=== PATIENT | female | born 1970 | race Caucasian/White ===

== ENCOUNTER 2019-09-04 15:42 | Emergency (ER) | payer OTHER ==
[~2019-09-04] VITALS: Ht 172.7 cm; Wt 127.0 kg
[~2019-09-04 15:42] MED LIST: CARVEDILOL25 MG; DICLOFENAC POTA50 MG PO; HYZAAR 100-12.1 EACH; JANUMET 50-5001 EACH; LANTUS SOL100 UNIT/1; NORFLEX100MG PO
[2019-09-04] MEDS ORDERED: GLYXAMBI 25 MG1 EACH (16:00)
[2019-09-04] MEDS ORDERED: CANDESARTAN CIL16 MG (16:00)
== END 2019-09-04 21:11 | disposition home or self-care (01) ==
LOC: ER 15:42
DX: R42 Dizziness and giddiness (principal)

== ENCOUNTER 2019-11-05 12:55 | Outpatient (CLI) | payer OTHER ==
[~2019-11-05 12:55] MED LIST changes: +CANDESARTAN CIL16 MG; +GLYXAMBI 25 MG1 EACH
== END 2019-11-05 13:03 | disposition home or self-care (01) ==
LOC: MAMO-SONO 12:55
DX: Z12.31 Encounter for screening mammogram for malignant neoplasm of breast (principal)

== ENCOUNTER 2020-02-14 11:58 | Outpatient (CLI) | payer OTHER | END 2020-02-14 12:19 | disposition home or self-care (01) | LOC: SONOGRAMA 11:58 | DX: N60.09 Solitary cyst of unspecified breast (principal); N63.10 Unspecified lump in the right breast, unspecified quadrant; N63.20 Unspecified lump in the left breast, unspecified quadrant ==

== ENCOUNTER 2020-05-17 07:34 | Outpatient (CLI) | payer OTHER | END 2020-05-17 07:45 | disposition home or self-care (01) | LOC: MRI 07:34 | DX: D44.3 Neoplasm of uncertain behavior of pituitary gland (principal); E22.1 Hyperprolactinemia | CPT/HCPCS: 70552 ==

== ENCOUNTER 2020-08-10 06:51 | Outpatient (CLI) | payer OTHER | END 2020-08-10 07:17 | disposition home or self-care (01) | LOC: LAB 06:51 | DX: I10 Essential (primary) hypertension (principal); R42 Dizziness and giddiness; Z20.828 Contact with and (suspected) exposure to other viral communicable diseases; Z11.59 Encounter for screening for other viral diseases; E78.2 Mixed hyperlipidemia; E11.65 Type 2 diabetes mellitus with hyperglycemia ==

== ENCOUNTER 2024-07-03 09:24 | Emergency (ER) | payer OTHER ==
[~2024-07-03] VITALS: Ht 172.7 cm; Wt 127.0 kg
[2024-07-03] MEDS ORDERED: LOSARTAN-HCTZ1 EACH (09:55)
[2024-07-03] MEDS ORDERED: TENORMIN50 M1 (09:55)
[2024-07-03] MEDS ORDERED: GLUMETZA1000 MG (09:55)
[2024-07-03] MEDS ORDERED: 0.9 % SODIUM CHLORIDE 1,000 ML IV ONE (10:30)
[2024-07-03] MEDS ORDERED: INSULIN REGULAR, HUMAN 1,000 UNIT/10 ML UNITS SUBCUTANEO ONE ×2 (10:30→11:45)
[2024-07-03 10:49] LABS: HEMOGLOBIN 12.6 g/dL (12.0-15.00); MEAN CELL VOLUME 75.8 fL (80.00-100.00); MEAN CORPUSCULAR HEMOGLOBIN 25.1 pg (27.00-32.0); MEAN CORPUSCULAR HGB CONC 33.1 g/dl (32.0-36.0); PLATELET COUNT 325 K/uL (150-450); RED BLOOD COUNT 5.01 M/uL (4.00-6.00); RED CELL DISTRIBUTION WIDTH 14.5 % (11.5-14.5)
[2024-07-03 11:10] LABS: ALBUMIN 3.3 gm/dL (3.4-5.0); BILIRUBIN TOTAL 0.44 mg/dL (0.3-1.2); CALCIUM 8.9 mg/dL (8.5-10.1); CREATININE SERUM 0.91 mg/dL (0.55-1.02); GFR 64.67; GLOBULINA 4.2 G/DL (2.4-3.5); POTASSIUM 4.22 mEq/L (3.5-5.1); TOTAL PROTEIN 7.5 gm/dL (6.4-8.2)
[2024-07-03 11:56] LABS: URINE APPEARANCE Clear; URINE BILIRRUBIN Negative (NEGATIVE); URINE BLOOD Negative; URINE COLOR Yellow; URINE KETONE Trace (NEGATIVE); URINE LEUKOCYTE Negative; URINE NITRATE Negative; URINE PROTEIN Negative (NEGATIVE); URINE UROBILINOGEN 0.2 E.U./dl
[2024-07-03 11:59] LABS: URINE BACTERIA 1894.9 uL (0.0-1933); URINE EPITHELIAL CELLS 24.2 uL (0.0-38.8); URINE RBC 14.6 uL (0.0-20.8)
[2024-07-03 12:04] LABS: URINE CAST 0.15 uL (0.0-1.40); URINE GLUCOSE >=1000 MG/DL (NEGATIVE)
[2024-07-03] MEDS ORDERED: INSULIN GLARGINE,HUM.REC.ANLOG 1,000 UNITS/10 ML UNITS SUBCUTANEO ONE (13:30)
[2024-07-03 15:07] LABS: ABG PH 7.451 (7.35-7.45); ABG PO2 108.7 mmHg (80-100); ABG pCO2 35.5 mmHg (35-45); BASE EXCESS 0.7 mmol/l; BICARBONATE 24.2 mmol/l (23-25); SaO2 98.5 %; Tco2 25.3 mmol/l
[2024-07-03] MEDS ORDERED: LANTUS SOL100 UNIT/1 SUBCUTANEO (15:19)
[2024-07-03 15:23] LABS: allen test SATISFACTORY; puncture site RADIAL LEFT
[2024-07-03 15:24] LABS: o2 21 %
== END 2024-07-03 15:24 | disposition home or self-care (01) ==
LOC: ER 09:25
PROVIDERS: General Practice
DX: E13.65 Other specified diabetes mellitus with hyperglycemia (principal); Z79.4 Long term (current) use of insulin; I10 Essential (primary) hypertension

== ENCOUNTER 2025-04-15 18:37 | Emergency (ER) | payer OTHER ==
[~2025-04-15] VITALS: Ht 172.7 cm; Wt 122.0 kg
[~2025-04-15 18:37] MED LIST changes: +GLUMETZA1000 MG; +LANTUS SOL100 UNIT/1 SUBCUTANEO; +LOSARTAN-HCTZ1 EACH; +TENORMIN50 M1
[2025-04-15] MEDS ORDERED: HYDROXYZINE HCL50 MG PO (22:15)
== END 2025-04-15 23:01 | disposition home or self-care (01) ==
LOC: ER 18:37
DX: R00.2 Palpitations (principal); F41.9 Anxiety disorder, unspecified; E11.9 Type 2 diabetes mellitus without complications; Z79.84 Long term (current) use of oral hypoglycemic drugs; I10 Essential (primary) hypertension